=== PATIENT | male | born 1985 | race Caucasian/White ===

== ENCOUNTER → 2019-10-26 | Day surgery (SDC) | payer BC ==
[2019-10-23 15:27] VITALS: BMI 40.6
[~2019-10-26] MED LIST: LACTATED RINGERS 1,000 ML IV SCH; LIDOCAINE 1% (10MG/ML) FOR IV START INTRADERMA PRN; PROPOFOL 10 MG/ML 20 ML VIAL IV ONE
[2019-10-26 10:11] VITALS: TEMP 97.8
--- NOTE | 2019-10-26 10:40 | P.GSHP ---
History of Present Illness H&P Date: 10/26/19 Chief Complaint: Rectal bleeding [age]-year-old male referred from Dr. Gross. Patient rents today for colonoscopy. He's had issues with rectal bleeding. Past Medical History Past Medical History: GERD/Reflux Additional Past Medical History / Comment(s): C/O blood in stool. "Told he had GI disease," unsure of name. History of Any Multi-Drug Resistant Organisms: None Reported Past Surgical History: Appendectomy Past Anesthesia/Blood Transfusion Reactions: No Reported Reaction Smoking Status: Current every day smoker - Past Family History Mother Family Medical History: No Reported History Additional Family Medical History / Comment(s): (maternal grandmother had breast cancer) Medications and Allergies Home Medications Medication Instructions Recorded Confirmed Type Calcium Carbonate [Tums] 500 - 1,000 mg PO QID PRN 10/23/19 10/23/19 History Multivitamin [Multivitamins Adult 1 each PO DAILY 10/23/19 10/23/19 History Gummies] Naproxen Sodium [Aleve] 220 - 440 mg PO BID PRN 10/23/19 10/23/19 History Allergies Allergy/AdvReac Type Severity Reaction Status Date / Time bee venom protein (honey bee) Allergy Anaphylaxis Verified 10/26/19 10:05 cephalexin monohydrate Allergy Unknown Verified 10/26/19 10:05 [From Keflex] Surgical - Exam Vital Signs Temp Pulse Resp BP Pulse Ox 97.8 F 72 16 127/77 97 10/26/19 10:10 10/26/19 10:10 10/26/19 10:10 10/26/19 10:10 10/26/19 10:10 - General well developed, well nourished, no distress - Eyes PERRL - ENT normal pinna - Neck no masses - Respiratory normal expansion - Cardiovascular Rhythm: regular - Abdomen Abdomen: soft Assessment and Plan Assessment: Rectal bleeding. We'll perform colonoscopy.
--- NOTE | 2019-10-26 10:51 | P.OP ---
Date of Procedure: 10/26/19 Preoperative Diagnosis: Rectal bleeding Postoperative Diagnosis: Internal hemorrhoids Procedure(s) Performed: Colonoscopy Anesthesia: MAC Surgeon: Syed Suazo Pathology: none sent Condition: stable Disposition: PACU Description of Procedure: Patient's placed on the endoscopy table in the lateral position. He received IV sedation. Digital rectal exam was performed which revealed internal hemorrhoids. Flexible colonoscope was then placed patient anus passed throughout the entire colon. The ileocecal valve visualized. The cecum, ascending and transverse colon appeared normal. The descending and sigmoid colon appeared normal. The scope was then brought back the rectum and this appeared normal. Scope was withdrawn and internal hemorrhoids over the anus. There is no evidence of any rectal bleeding. It is presumed that his previous bleeding is from internal hemorrhoids.
[2019-10-26 11:15] VITALS: BP 133/92; PULSE 64; RESP 18
== END | disposition home or self-care (01) ==
LOC: ORWHC2ENDO 09:50
PROVIDERS: ATTEND Surgery
DX: K64.8 Other hemorrhoids (principal); K21.9 Gastro-esophageal reflux disease without esophagitis; F17.200 Nicotine dependence, unspecified, uncomplicated; Z90.49 Acquired absence of other specified parts of digestive tract; Z88.1 Allergy status to other antibiotic agents; Z91.030 Bee allergy status; Z80.3 Family history of malignant neoplasm of breast
CPT/HCPCS: 45378; J2704